=== PATIENT | female | born 1990 | race Caucasian/White ===

== ENCOUNTER 2016-08-20 20:30 | Emergency (ER) | payer BC, OTHER ==
[2016-08-20] MEDS ORDERED: HYDROcodone/Acetaminophen 5/325 mg Tablet ONE (21:02)
== END 2016-08-20 21:19 | disposition home or self-care (01) ==
LOC: MADERS 20:30
DX: T63.461A Toxic effect of venom of wasps, accidental (unintentional), initial encounter (principal); Z79.891 Long term (current) use of opiate analgesic
CPT/HCPCS: 96372; J1040

== ENCOUNTER 2018-10-05 13:44 | Emergency (ER) | payer OTHER ==
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
--- NOTE | 2018-10-05 14:57 | RAD ---
EXAM: 3 views of the right foot HISTORY: Foot pain COMPARISON: None FINDINGS: 3 views of the right foot shows a fracture of the proximal phalanx of the great toe which e xtends to the interphalangeal joint. No degenerative changes are present. IMPRESSION: Great toe proximal phalanx fracture
--- NOTE | 2018-10-05 15:00 | RAD ---
EXAM: 2 views of the thoracic spine HISTORY: Thoracic spine pain COMPARISON: None FINDINGS: 2 views of the thoracic spine shows normal height and alignment of the vertebral bodies and intervertebral discs without fracture or subluxation. Mild scoliotic curvature of the spine is seen. No significant degenerative changes are seen. IMPRESSION: No acute thoracic spine abnormality.
[2018-10-05 15:33] LABS: Bilirubin Negative (Negative); Blood, Urine Negative (Negative); Clarity Hazy (Clear); Glucose, Urine (Dipstick) Negative (Negative); Leukocyte Negative (Negative); Nitrite Negative (Negative); Protein, Urine (Dipstick) Trace mg/dL (Neg-Trace); Urobilinogen 0.2 mg/dL (Less than 2)
[2018-10-05 15:35] LABS: Pregnancy Test - Urine (BHCG) Negative (Negative); Pregu Control Background? CLEAR/WHITE (CLR/WHITE); Pregu Control Bar Appear? YES (CONTROL BAR)
[2018-10-05] MEDS ORDERED: Cyclobenzaprine 10 MG TAB ONE (15:41)
== END 2018-10-05 16:40 | disposition home or self-care (01) ==
LOC: MADERS 13:44
DX: S92.411A Displaced fracture of proximal phalanx of right great toe, initial encounter for closed fracture (principal); S39.012A Strain of muscle, fascia and tendon of lower back, initial encounter; V89.2XXA Person injured in unspecified motor-vehicle accident, traffic, initial encounter
CPT/HCPCS: 72070; 72100; 81003; 81025

== ENCOUNTER → 2024-10-09 | Day surgery (SDC) | payer MEDICAID ==
[2024-10-09] MEDS: Rabies Vaccine Human 2.5 UNITS VIAL ONE (09:42)
== END ==
LOC: MADER/OP 08:39
PROVIDERS: ATTEND Emergency Medicine
DX: Z29.14 Encounter for prophylactic rabies immune globulin (principal)
CPT/HCPCS: 90675